=== PATIENT | female | born 1955 | race Two or more races ===

== ENCOUNTER 2016-05-29 22:32 | Emergency (ER) | payer OTHER ==
[~2016-05-29] VITALS: Ht 162.6 cm; Wt 74.8 kg
[~2016-05-29 22:32] MED LIST: ATOR20TA58 PO; DULO60CA6 PO; EZET10TA3 PO; GABA-585 PO; LISI10TA2 PO; METF500T4 PO; OMEP20CA9 PO; RANI150C PO
[2016-05-29 23:04] LABS: HEMATOCRIT 38.7 % (36.0-47.0); HEMOGLOBIN 13.1 g/dL (12.0-15.5); RED BLOOD COUNT 4.28 x10^6/uL (3.50-5.40); RED CELL DISTRIBUTION WIDTH 12.4 % (11.5-14.5); WHITE BLOOD COUNT 9.5 x10^3/uL (4.0-11.0)
[2016-05-29 23:11] LABS: PROTHROMBIN TIME PATIENT 12.4 SEC (11.7-14.0)
[2016-05-29] MEDS ORDERED: SILVER NITRATE STICK TP ONE (23:15)
[2016-05-29 23:23] LABS: CALCIUM 9.1 mg/dL (8.5-10.1); CREATININE 0.7 mg/dL (0.6-1.0); GFR 85.6; POTASSIUM 3.2 mmol/L (3.5-5.1)
[2016-05-29] MEDS ORDERED: CEPH-264 PO (23:49)
--- NOTE | 2016-05-29 23:49 | PHYS DOC ---
Past Medical History Past Medical History: Diabetes-Type II, GERD, High Cholesterol, Hypertension Past Surgical History: Hysterectomy, Other Additional Past Surgical Histo: FATTY TUMORE REMOVAL ON BREAST Alcohol Use: Occasionally Drug Use: None Adult General Chief Complaint Chief Complaint: NOSEBLEED HPI HPI Patient is a 61 year old female with history significant for epistaxis in the past and hypertension presents here today with nosebleed that started prior to arrival. Patient reports that she applied pressure to her nose however when she releases it starts to bleed again. Patient denies any other symptomatology. Patient denies any fevers shaking chills nausea vomiting diarrhea chest pain shortness of breath dizziness hematuria lunar stool. Patient denies any dizziness presyncope symptoms. He is not on any anticoagulants. Patient does not take any aspirin Plavix or Coumadin. Patient's physical exam was significant for significant injection to her left naris specifically at hassled lax plexus. There is no visible vessel or culvert vessel identified. Blood clots were removed by patient blowing her nose and her septum were identified and visualized completely. The remainder of the patient's physical exam was unremarkable. Patient's naris specifically on the left were cauterized using silver nitrate. Using a epistatic balloon that was inserted in her left naris and inflated with 1 mL of air. Patient was instructed to follow-up with her doctor in 3-4 days for removal of the balloon. I discussed with her she is unable to make an appointment that she can return to the ER however preferably she will see her primary care physician. Patient will be given a prescription for Keflex as well Review of Systems Review of Systems Constitutional: Denies fever or chills [] Eyes: Denies change in visual acuity, redness, or eye pain [] HENT: Denies nasal congestion or sore throat [] All other review systems are negative except as documented in the history of present illness portion. Current Medications Current Medications Current Medications Medications (Trade) Dose Ordered Sig/Carolyne Start Time Stop Time Status Last Admin Dose Admin Silver Nitrate/ Potassium Nitrate 4 each 1X ONCE 05/29/16 23:15 05/29/16 23:16 DC 05/29/16 23:15 4 EACH Allergies Allergies Allergies Coded Allergies Type Severity Reaction Last Updated Verified No Known Drug Allergies 06/17/14 No Physical Exam Physical Exam Constitutional: Well developed, well nourished, no acute distress, non-toxic appearance. [] HENT: Normocephalic, atraumatic, bilateral external ears normal, oropharynx moist, no oral exudates, nose normal. [] Eyes: PERRLA, EOMI, Neck: Normal range of motion, no tenderness, supple, no stridor. [] Cardiovascular:Heart rate regular rhythm, no murmur [] Lungs & Thorax: Bilateral breath sounds clear to auscultation [] Abdomen: Bowel sounds normal, soft, no tenderness, no masses, no pulsatile masses. [] Skin: Warm, dry, no erythema, no rash. [] Back: No tenderness, no CVA tenderness. [] Extremities: No tenderness, no cyanosis, no clubbing, ROM intact, no edema. [] Neurologic: Alert and oriented X 3, normal motor function, normal sensory function, no focal deficits noted. [] Psychologic: Affect normal, judgement normal, mood normal. [] Current Patient Data Vital Signs Vital Signs Date Time Temp Pulse Resp B/P Pulse Ox O2 Delivery O2 Flow Rate FiO2 05/29/16 22:35 98.9 108 18 150/84 97 Room Air 98.9 Lab Values Laboratory Tests Test 05/29/16 23:00 White Blood Count 9.5x10^3/uL (4.0-11.0) Red Blood Count 4.28x10^6/uL (3.50-5.40) Hemoglobin 13.1g/dL (12.0-15.5) Hematocrit 38.7% (36.0-47.0) Mean Corpuscular Volume 91fL (79-100) Mean Corpuscular Hemoglobin 31pg (25-35) Mean Corpuscular Hemoglobin Concent 34g/dL (31-37) Red Cell Distribution Width 12.4% (11.5-14.5) Platelet Count 209x10^3/uL (140-400) Prothrombin Time 12.4SEC (11.7-14.0) Prothrombin Time INR 1.0 (0.8-1.1) Sodium Level 144mmol/L (136-145) Potassium Level 3.2mmol/L (3.5-5.1) L Chloride Level 105mmol/L (98-107) Carbon Dioxide Level 28mmol/L (21-32) Anion Gap 11 (6-14) Blood Urea Nitrogen 19mg/dL (7-20) Creatinine 0.7mg/dL (0.6-1.0) Estimated GFR (Cockcroft-Gault) 85.6 Glucose Level 143mg/dL (70-99) H Calcium Level 9.1mg/dL (8.5-10.1) Laboratory Tests 05/29/16 23:00 Laboratory Tests 05/29/16 23:00 EKG EKG [] Radiology/Procedures Radiology/Procedures [] Course & Med Decision Making Course & Med Decision Making Pertinent Labs and Imaging studies reviewed. (See chart for details) [] Dragon Disclaimer Dragon Disclaimer This electronic medical record was generated, in whole or in part, using a voice recognition dictation system. Departure Departure Impression: Primary Impression: Epistaxis Disposition: 01 HOME, SELF-CARE Condition: IMPROVED Referrals: REMEDIOS NAILS MD (PCP) Patient Instructions: Nosebleed Scripts Cephalexin (Keflex)500 Mg [id number] Mg PO QID 5 Days Prov:NJ HUGHES MD 05/29/16 NJ HUGHES MD May 29, 2016 23:49
[2016-05-30 00:10] VITALS: BP 158/91
[2016-05-30] MEDS ORDERED: HYDR-971 PO (13:31)
== END 2016-05-30 00:18 | disposition home or self-care (01) ==
LOC: ER 22:32
DX: R04.0 Epistaxis (principal); E11.9 Type 2 diabetes mellitus without complications; E78.00 Pure hypercholesterolemia, unspecified; I10 Essential (primary) hypertension; K21.9 Gastro-esophageal reflux disease without esophagitis; Z90.710 Acquired absence of both cervix and uterus
CPT/HCPCS: 36415; 80048; 85027; 85610; 99284

== ENCOUNTER 2016-05-30 12:42 | Emergency (ER) | payer OTHER ==
[~2016-05-30 12:42] MED LIST changes: +CEPH-264 PO
[2016-05-30 13:00] VITALS: BP 159/70
[2016-05-30] MEDS ORDERED: HYDROCODONE/APAP 5/325MG TABLET. PO ONE (13:30)
[2016-05-30] MEDS ORDERED: HYDR-971 PO (13:31)
--- NOTE | 2016-05-30 13:31 | PHYS DOC ---
Past Medical History Past Medical History: Diabetes-Type II, GERD, High Cholesterol, Hypertension Past Surgical History: Hysterectomy, Other Additional Past Surgical Histo: FATTY TUMORE REMOVAL ON BREAST Alcohol Use: Occasionally Drug Use: None Adult General Chief Complaint Chief Complaint: FACE PROBLEM HPI HPI 61-year-old female who has left-sided nasal packing in place from an epistaxis last evening. Patient now states she's having significant a she'll pain and sensation of drainage in the back of her throat when she lies flat. She denies any bleeding. She denies any chest pain or shortness of breath. She denies taking any blood thinners. She denies any fever or chills. Patient was prescribed a course of Keflex but she has not yet started taking it. Review of Systems Review of Systems Constitutional: Denies fever or chills [] Eyes: Denies change in visual acuity, redness, or eye pain [] HENT: Denies nasal congestion or sore throat [] Respiratory: Denies cough or shortness of breath [] Cardiovascular: No additional information not addressed in HPI [] GI: Denies abdominal pain, nausea, vomiting, bloody stools or diarrhea [] : Denies dysuria or hematuria [] Musculoskeletal: Denies back pain or joint pain [] Integument: Denies rash or skin lesions [] Neurologic: Denies headache, focal weakness or sensory changes [] Endocrine: Denies polyuria or polydipsia [] Allergies Allergies Allergies Coded Allergies Type Severity Reaction Last Updated Verified No Known Drug Allergies 06/17/14 No Physical Exam Physical Exam Constitutional: Well developed, well nourished, no acute distress, non-toxic appearance. [] HENT: Normocephalic, atraumatic, bilateral external ears normal, oropharynx moist, mild uvula swelling, no oral exudates, left nare is packed and appears appropriate, there is no septal hematoma or active bleeding seen in the nose or oropharynx [] Eyes: PERRLA, EOMI, conjunctiva normal, no discharge. [] Neck: Normal range of motion, no tenderness, supple, no stridor. [] Cardiovascular:Heart rate regular rhythm, no murmur [] Lungs & Thorax: Bilateral breath sounds clear to auscultation [] Abdomen: Bowel sounds normal, soft, no tenderness, no masses, no pulsatile masses. [] Skin: Warm, dry, no erythema, no rash. [] Back: No tenderness, no CVA tenderness. [] Extremities: No tenderness, no cyanosis, no clubbing, ROM intact, no edema. [] Neurologic: Alert and oriented X 3, normal motor function, normal sensory function, no focal deficits noted. [] Psychologic: Affect normal, judgement normal, mood normal. [] Current Patient Data Vital Signs Vital Signs Date Time Temp Pulse Resp B/P Pulse Ox O2 Delivery O2 Flow Rate FiO2 05/30/16 13:00 98.3 75 19 97 Room Air 98.3 EKG EKG [] Radiology/Procedures Radiology/Procedures [] Course & Med Decision Making Course & Med Decision Making Pertinent Labs and Imaging studies reviewed. (See chart for details) This 61-year-old female has ongoing pain from a left-sided nasal packing. I counseled the patient length that I will not be removing this nasal packing and that it needs to be in place for an additional 2 days. Patient is needing to be seen by her primary care doctor on Wednesday or Wednesday for nasal packing removal. Patient does have a procedure for Keflex and she will start taking it today. I will be prescribing her 2 days worth of [place] to help with her symptoms. I also counseled her at length not to lie flat and to prop herself up with several pillows at night. She was given a dose of oral [place] in the department. She'll be discharged without incident. Dragon Disclaimer Dragon Disclaimer This electronic medical record was generated, in whole or in part, using a voice recognition dictation system. Departure Departure Impression: Primary Impression: Epistaxis Additional Impression: Facial pain Disposition: 01 HOME, SELF-CARE Admitting Physician: Other Condition: STABLE Referrals: REMEDIOS NAILS MD (PCP) Patient Instructions: Nosebleed, [id number] Additional Instructions: Please take your pain medication as prescribed. Follow up with your primary doctor in the next 2-3 days to have your packing removed. Return to the ER if you develop any worsening of your symptoms. Scripts Hydrocodone/Apap 5-325 ([place] 5-325 Tablet)1 Each Tablet1 Tab PO PRN Q6HRS PRN PAIN #10 TAB Prov:KARYN SIN DO 05/30/16 Problem Qualifiers KARYN SIN DO May 30, 2016 13:31
== END 2016-05-30 13:57 | disposition home or self-care (01) ==
LOC: ER 12:42
DX: R04.0 Epistaxis (principal); R51 Headache; E11.9 Type 2 diabetes mellitus without complications; E78.00 Pure hypercholesterolemia, unspecified; I10 Essential (primary) hypertension; K21.9 Gastro-esophageal reflux disease without esophagitis; Z90.710 Acquired absence of both cervix and uterus
CPT/HCPCS: 99283

== ENCOUNTER 2016-06-02 14:41 | Emergency (ER) | payer OTHER ==
[~2016-06-02] VITALS: Ht 165.1 cm; Wt 74.8 kg
[~2016-06-02 14:41] MED LIST changes: +HYDR-971 PO
[2016-06-02 15:25] VITALS: BP 122/75
--- NOTE | 2016-06-02 16:08 | PHYS DOC ---
Past Medical History Past Medical History: Diabetes-Type II, GERD, High Cholesterol, Hypertension Past Surgical History: Hysterectomy, Other Additional Past Surgical Histo: FATTY TUMORE REMOVAL ON BREAST Alcohol Use: Occasionally Drug Use: None Adult General Chief Complaint Chief Complaint: OTHER COMPLAINTS [facility] HPI Patient is a 61 year old female with history of hypertension high cholesterol diabetes type II who presents today for nasal packing removal, patient states she has had the packing for 4 days. She states she is not able to see the PCP today or tomorrow. Review of Systems Review of Systems Constitutional: Denies fever or chills [] Eyes: Denies change in visual acuity, redness, or eye pain [] HENT: nasal packing removal. Respiratory: Denies cough or shortness of breath [] Cardiovascular: No additional information not addressed in HPI [] GI: Denies abdominal pain, nausea, vomiting, bloody stools or diarrhea [] : Denies dysuria or hematuria [] Musculoskeletal: Denies back pain or joint pain [] Integument: Denies rash or skin lesions [] Neurologic: Denies headache, focal weakness or sensory changes [] Endocrine: Denies polyuria or polydipsia [] Allergies Allergies Allergies Coded Allergies Type Severity Reaction Last Updated Verified No Known Drug Allergies 06/17/14 No Physical Exam Physical Exam Constitutional: Well developed, well nourished, no acute distress, non-toxic appearance. [] HENT: Normocephalic, atraumatic, bilateral external ears normal, oropharynx moist, no oral exudates, nose normal. [] Eyes: PERRLA, EOMI, Left nasal cavity with a rhino rocket. Neck: Normal range of motion, no tenderness, supple, no stridor. [] Cardiovascular:Heart rate regular rhythm, no murmur [] Lungs & Thorax: Bilateral breath sounds clear to auscultation [] Abdomen: Bowel sounds normal, soft, no tenderness, no masses, no pulsatile masses. [] Skin: Warm, dry, no erythema, no rash. [] Back: No tenderness, no CVA tenderness. [] Extremities: No tenderness, no cyanosis, no clubbing, ROM intact, no edema. [] Neurologic: Alert and oriented X 3, normal motor function, normal sensory function, no focal deficits noted. [] Psychologic: Affect normal, judgement normal, mood normal. [] Current Patient Data Vital Signs Vital Signs Date Time Temp Pulse Resp B/P Pulse Ox O2 Delivery O2 Flow Rate FiO2 06/02/16 15:25 97.9 87 16 96 Room Air 97.9 EKG EKG [] Radiology/Procedures Radiology/Procedures [] Course & Med Decision Making Course & Med Decision Making Pertinent Labs and Imaging studies reviewed. (See chart for details) Patient is in the Ed for Nasal packing removal placed four days ago. Dr. Mcnulty removed patient's rhino rocket nasal packing. Patient was in the ED for 20 minutes after packing removal with no bleeding. She is on Keflex. She was provided return precautions and discharged in Stable condition. Dragon Disclaimer Dragon Disclaimer This electronic medical record was generated, in whole or in part, using a voice recognition dictation system. Departure Departure Impression: Primary Impression: Encounter for removal of nasal pack Disposition: 01 HOME, SELF-CARE Condition: STABLE Referrals: REMEDIOS NAILS MD (PCP) follow up with your doctor tomorrow or the next day Patient Instructions: Nosebleed Additional Instructions: We removed packing from your left nose. Please do not sneeze or cough hard. Follow up with your doctor tomorrow. Return to the ED for further nose bleeding. Apply Neosporin to the inside of the left nose twice a day for a week MIRNA MARTIN APRN Jun 02, 2016 16:08
== END 2016-06-02 16:11 | disposition home or self-care (01) ==
LOC: ER 14:41
DX: Z48.01 Encounter for change or removal of surgical wound dressing (principal); I10 Essential (primary) hypertension; E78.00 Pure hypercholesterolemia, unspecified; E11.9 Type 2 diabetes mellitus without complications; K21.9 Gastro-esophageal reflux disease without esophagitis
CPT/HCPCS: 99281

== ENCOUNTER → 2017-01-18 | Outpatient (CLI) | payer OTHER ==
[~2017-01-18] MED LIST changes: +EZET10TA18 PO; -EZET10TA3 PO
--- NOTE | 2017-01-19 14:07 | RAD ---
DATE: 01/18/17 EXAM: DIGITAL SCREEN BILAT W/CAD HISTORY: Routine screening COMPARISON: 12/26/15 This study was interpreted with the benefit of Computerized Aided Detection (CAD). TECHNIQUE: Routine CC and MLO views of both breasts are obtained. FINDINGS: Breast Density: SCATTERED The breast parenchyma shows scattered fibroglandular densities. Breast parenchyma level B. . No suspicious clustered microcalcifications, focal asymmetric densities or masses are seen. Skin and nipples are intact IMPRESSION: Negative exam BI-RADS CATEGORY: 1 NEGATIVE RECOMMENDED FOLLOW-UP: 12M 12 MONTH FOLLOW-UP PQRS compliance statement: Patient information was entered into a reminder system with a target due date for the next mammogram. Mammography is a sensitive method for finding small breast cancers, but it does not detect them all and is not a substitute for careful clinical examination. A negative mammogram does not negate a clinically suspicious finding and should not result in delay in biopsying a clinically suspicious abnormality. "Our facility is accredited by the [employer] Mammography Program."
== END | disposition home or self-care (01) ==
LOC: MAMMO 12:45
PROVIDERS: ATTEND Family Medicine
DX: Z12.31 Encounter for screening mammogram for malignant neoplasm of breast (principal)
CPT/HCPCS: G0202; 77067

== ENCOUNTER → 2017-05-04 | Day surgery (SDC) | payer OTHER ==
[~2017-05-04] MED LIST changes: -ATOR20TA58 PO; -CEPH-264 PO; -DULO60CA6 PO; -EZET10TA18 PO; -GABA-585 PO; -HYDR-971 PO; +IV RINGERS,LACTATED 1000ML 1,000 ML IV; +LIDOCAINE 1% PF 2 ML VIAL. ID; -LISI10TA2 PO; -METF500T4 PO; +MIDAZOLAM HCL/PF 2 MG/2 ML VIAL. IV; -OMEP20CA9 PO; +PROPOFOL 40 ML IV; -RANI150C PO; +fentaNYL PF VIAL 100 MCG/2 ML VIAL IV
[2017-05-04 08:31] LABS: POC GLUCOSE 102 mg/dL (70-99)
== END | disposition home or self-care (01) ==
LOC: ENDOS 07:58
DX: Z12.11 Encounter for screening for malignant neoplasm of colon (principal); E11.9 Type 2 diabetes mellitus without complications; I10 Essential (primary) hypertension; K21.9 Gastro-esophageal reflux disease without esophagitis; Z87.39 Personal history of other diseases of the musculoskeletal system and connective tissue; Z90.49 Acquired absence of other specified parts of digestive tract; Z79.899 Other long term (current) drug therapy; Z86.69 Personal history of other diseases of the nervous system and sense organs; Z90.710 Acquired absence of both cervix and uterus; Z98.51 Tubal ligation status; Z86.39 Personal history of other endocrine, nutritional and metabolic disease; Z87.19 Personal history of other diseases of the digestive system
CPT/HCPCS: 45378; 82962; J2704

== ENCOUNTER → 2018-05-13 | Outpatient (CLI) | payer OTHER ==
[2017-05-04 09:07] VITALS: BP 112/64
[~2018-05-13] MED LIST changes: +ATOR20TA58 PO; +CEPH-264 PO; +DULO60CA6 PO; +EZET10TA18 PO; +GABA-585 PO; +HYDR-3164 PO; -IV RINGERS,LACTATED 1000ML 1,000 ML IV; -LIDOCAINE 1% PF 2 ML VIAL. ID; +LISI10TA2 PO; +METF500T16 PO; -MIDAZOLAM HCL/PF 2 MG/2 ML VIAL. IV; +OMEP20CA9 PO; -PROPOFOL 40 ML IV; +RANI150C PO; -fentaNYL PF VIAL 100 MCG/2 ML VIAL IV
--- NOTE | 2018-05-17 08:26 | RAD ---
DATE: 05/13/2018 3:00 PM EXAM: MAMMO RAMILA SCREENING BILATERAL HISTORY: routine screening evaluation. COMPARISON: Prior mammographic imaging dating back to 10/18/2010 Bilateral CC and MLO views of the breasts were performed. Bilateral breast tomosynthesis was performed in CC and MLO projections. This study was interpreted with the benefit of Computerized Aided Detection (CAD ). Breast Density: The breast parenchyma is primarily fatty replaced. Breast parenchyma level density A. FINDINGS: Benign calcifications are present. The parenchymal pattern appears stable. Dermal marker is seen overlying the left breast. No suspicious masses, microcalcifications or architectural distortion is present to suggest malignancy in either breast. The visualized axillae are unremarkable. IMPRESSION: No mammographic evidence of malignancy. BI-RADS CATEGORY: 2 BENIGN FINDING(S) RECOMMENDED FOLLOW-UP: 12M 12 MONTH FOLLOW-UP Annual screening mammography is recommended, unless clinically indicated sooner based on symptoms or change in physical exam. PQRS compliance statement: Patient information was entered into a reminder system with a target due date 05/13/19 for the next mammogram. Mammography is a sensitive method for finding small breast cancers, but it does not detect them all and is not a substitute for careful clinical examination. A negative mammogram does not negate a clinically suspicious finding and should not result in delay in biopsying a clinically suspicious abnormality. "Our facility is accredited by the [employer] Mammography [employer]." KEYURD
== END | disposition home or self-care (01) ==
LOC: MAMMO 12:54
PROVIDERS: ATTEND Family Medicine
DX: Z12.31 Encounter for screening mammogram for malignant neoplasm of breast (principal)
CPT/HCPCS: 77063; 77067

== ENCOUNTER → 2019-05-15 | Outpatient (CLI) | payer OTHER ==
[2017-05-04 09:07] VITALS: BP 112/64
[~2019-05-15] MED LIST changes: -EZET10TA18 PO; +EZET10TA20 PO; +OMEP20CA16 PO; -OMEP20CA9 PO
--- NOTE | 2019-05-17 09:01 | RAD ---
History: Routine screening. Technique: Bilateral digital mammographic routine views were obtained with 2-D and 3-D technique and reviewed with CAD - computer aided detection. Comparison: May 13, 2018. Findings: Breast Tissue Density B :The breast tissue is composed of mixed fatty and fibroglandular tissue. There are no suspicious masses, microcalcifications or areas of architectural distortion. Impression: Negative mammogram. BI-RADS Category 1: Negative. Normal interval followup. A mammogram does not have 100% sensitivity and therefore a negative imaging study should not delay further work up of a suspicious abnormality. The patient will receive a letter with the results in the mail. Patient information is entered into the reminder system with a target due date for the next screening mammogram. The patient will receive a reminder. "Our facility is accredited by the [employer] Mammography Program." BI-RADS 1 -- negative findings (within normal)
== END | disposition home or self-care (01) ==
LOC: MAMMO 09:06
PROVIDERS: ATTEND Family Medicine
DX: Z12.31 Encounter for screening mammogram for malignant neoplasm of breast (principal)
CPT/HCPCS: 77063; 77067

== ENCOUNTER → 2020-09-06 | Outpatient (CLI) | payer MEDICARE ==
[2017-05-04 09:07] VITALS: BP 112/64
[~2020-09-06] MED LIST changes: +LISI10TA16 PO; -LISI10TA2 PO
--- NOTE | 2020-09-06 12:23 | KCIC ---
Bilateral digital screening mammograms with 3-D tomosynthesis: Reason for examination: Routine screening. Comparison is made to previous studies dated back to 12/25/2014. Bilateral mammograms in CC and oblique projections were obtained with 2-D imaging and 3-D tomosynthes is imaging on a Siemens Inspiration unit and reviewed on the workstation. Interpretation was made wit h the benefit of CAD. The skin and nipples show no abnormalities. No abnormal axillary lymph nodes are seen. The breast par enchyma shows scattered fatty and fibroglandular density. (Breast density: Category B.) There are no dominant masses, suspicious calcifications or architectural distortion. Impression: No evidence of malignancy. Recommend routine screening. BI-RAD Category 1: Negative. "Our facility is accredited by the [employer] Mammography Program." This patient's information has been entered into a reminder system for the patient to be notified wit h the results of her examination and a target date for the next mammogram. Electronically signed by: Floresita Haider MD (09/06/2020 12:21 PM) [id number]
== END ==
LOC: KCIC MAMMO 11:05
PROVIDERS: ATTEND Family Medicine
DX: Z12.31 Encounter for screening mammogram for malignant neoplasm of breast (principal)
CPT/HCPCS: 77063; 77067